=== PATIENT | female | born 1995 | race Caucasian/White ===

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

== ENCOUNTER → 2018-09-24 | Outpatient (CLI) | payer OTHER ==
--- NOTE | 2018-09-25 11:59 | XR ---
Cervical spine HISTORY: Right hand paresthesia, low back pain 5 views of the cervical spine No evident foraminal encroachment. Mild anterolisthesis grade 1 C4-5, C5-6 noted. There is relative s traightening of the cervical spine possibly due to underlying muscle spasm. Prevertebral soft tissues are normal. Cervical vertebral bodies show preserved height and bone mineralization. Disc spaces are maintained. Odontoid view somewhat limited. Questionable air-fluid level seen overlying the level of the larynx. IMPRESSION: Reversal of cervical lordosis may be due to underlying muscle spasm. Abnormal density see n on the lateral exam at the level of the larynx. Contrast-enhanced CT of the neck could be performed for additional evaluation.
--- NOTE | 2018-09-25 12:00 | XR ---
Lumbar spine HISTORY: Low back pain 5 views of the lumbar spine Lumbar vertebral bodies show preserved height, alignment, and bone mineralization. There is no eviden t spondylolysis or spondylolisthesis. Disc spaces are maintained. IMPRESSION: Normal lumbar spine.
== END | disposition home or self-care (01) ==
LOC: RADXRMAIN 17:15
PROVIDERS: ATTEND Family Medicine
DX: M54.5 Low back pain (principal); M40.40 Postural lordosis, site unspecified
CPT/HCPCS: 72050; 72110

== ENCOUNTER 2022-06-17 17:26 | Emergency (ER) | payer OTHER ==
[2022-06-17] MEDS ORDERED: PENICILLIN V POTASSIUM 250 MG TAB PO STA (18:51)
[2022-06-17] MEDS ORDERED: HYDROcodone/APAP 5-325MG 1 EACH TAB PO STA (18:51)
[2022-06-17 19:31] VITALS: BP 134/76; PULSE 81; RESP 16; TEMP 98.3
--- NOTE | 2022-06-17 19:37 | ED ---
General Adult HPI - General Chief complaint: Dental/Oral Stated complaint: Dental Pain Time Seen by Provider: 06/17/22 18:16 Source: patient, RN notes reviewed Mode of arrival: ambulatory Limitations: no limitations - History of Present Illness Initial comments: 26-year-old female presents to the emergency department for evaluation of dental pain. Patient states she has wisdom teeth that are infected and need to come out, but is unable to see an oral surgeon due to insurance issues. States she has taken Motrin at home with minimal improvement. Has been eating soft foods and attempting to avoid irritants. Denies fever, chills, headache, difficulty swallowing, or trismus. - Related Data Previous Rx's Medication Instructions Recorded HYDROcodone/APAP 5-325MG [[place] 1 tab PO Q6HR PRN 3 Days #12 tab 06/17/22 5-325] Penicillin V Potassium [Pen Vee K] 500 mg PO QID #40 tablet 06/17/22 Allergies Allergy/AdvReac Type Severity Reaction Status Date / Time No Known Allergies Allergy Verified 06/17/22 19:20 Review of Systems ROS Statement: Those systems with pertinent positive or pertinent negative responses have been documented in the HPI. ROS Other: All systems not noted in ROS Statement are negative. Past Medical History Additional Past Medical History / Comment(s): meningitis History of Any Multi-Drug Resistant Organisms: None Reported Additional Past Surgical History / Comment(s): kidney, uterine and cervical surgery Past Psychological History: No Psychological Hx Reported Smoking Status: Current every day smoker Past Alcohol Use History: None Reported Past Drug Use History: None Reported General Exam Limitations: no limitations General appearance: alert, other (Well-developed, well-nourished female in no acute distress though is moderately uncomfortable. Initial temperature 98.2, pulse 82, respirations 20, blood pressure 152/92, pulse ox 100% on room air.) Expanded Mouth exam: Absent: trismus Teeth exam: Present: dental caries, dental tenderness # (17) Neck exam: Present: normal inspection. Absent: tenderness, meningismus, lym phadenopathy Respiratory exam: Present: normal lung sounds bilaterally. Absent: respiratory distress, wheezes, rales, rhonchi, stridor Cardiovascular Exam: Present: regular rate, normal rhythm, normal heart sounds. Absent: systolic murmur, diastolic murmur, rubs, gallop, clicks Neurological exam: Present: alert, oriented X3, CN II-XII intact Course Vital Signs 06/17/22 06/17/22 18:04 19:29 Temperature 98.2 F 98.3 F Pulse Rate 82 81 Respiratory 20 16 Rate Blood Pressure 152/92 134/76 O2 Sat by Pulse 100 98 Oximetry Medical Decision Making - Medical Decision Making 26-year-old female presents to the emergency department for treatment of dental pain. Upon exam, patient is noted to have a broken wisdom tooth (#17) which is causing her significant discomfort. She is afebrile with stable vital signs. There is no evidence of abscess. She will be started on antibiotic and given pain medication. Provided with dental clinic resources and encouraged follow-up as soon as possible. Return parameters discussed in detail. Patient verbalizes understanding and agrees with this plan. Attending: Stefano. Disposition Clinical Impression: Dental caries, Pain, dental Disposition: HOME SELF-CARE Condition: Stable Instructions (If sedation given, give patient instructions): Toothache (ED) Additional Instructions: Take antibiotic as prescribed. Alternate Motrin with Veyo. You must follow-up with a dentist. You may need to see your PCP to help fac ilitate this process if it requires a formal referral process. Return to the emergency department with any new, worsening, or concerning symptoms. Please follow up with the [facility] dental clinic. [address] [place] [address] [place] [address]. Phone number for new patients or [phone] for existing patients. Prescriptions: HYDROcodone/APAP 5-325MG [Veyo 5-325] 1 tab PO Q6HR PRN 3 Days #12 tab PRN Reason: Pain Penicillin V Potassium [Pen Vee K] 500 mg PO QID #40 tablet Is patient prescribed a controlled substance at d/c from ED?: Yes When asked, does pt state using other controlled substances?: No If prescribed controlled substance>3 days was MAPS reviewed?: Prescribed <3 Days If opioid is for acute pain is fill amount 7 days or less?: Yes If Rx opioid, was Start Talking consent form obtained?: Yes Referrals: Yanci Olmedo MD [Primary Care Provider] - 1-2 days Time of Disposition: 19:37
[2022-06-17] MEDS ORDERED: ACET/COD 300 MG/30 MG STARTER PACK 6 TAB BTL PO STA (19:55)
== END 2022-06-17 20:06 | disposition home or self-care (01) ==
LOC: EC 17:26
DX: K02.9 Dental caries, unspecified (principal); F17.200 Nicotine dependence, unspecified, uncomplicated
CPT/HCPCS: 99282

== ENCOUNTER 2022-11-30 17:07 | Emergency (ER) | payer OTHER ==
[2022-11-30 17:29] VITALS: RESP 18; TEMP 98.5
[2022-11-30 17:48] LABS: Appearance,Urine Clear (Clear); Bilirubin,Urine Negative (Negative); Blood,Urine Large (Negative); Color,Urine Yellow; Glucose,Urine (UA) Negative (Negative); Ketones,Urine Negative (Negative); Leukocyte Esterase,Urine Moderate (Negative); Nitrite,Urine Negative (Negative); PH, Urine 7.5 (5.0-8.0); Protein,Urine Trace (Negative); RBC,Urine >182 /hpf (0-5); Specific Gravity,Urine 1.017 (1.001-1.035); Squamous Epithelial Cell,Urine 2 /hpf (0-4); Urobilinogen,Urine <2.0 mg/dL (<2.0); WBC,Urine 7 /hpf (0-5)
--- NOTE | 2022-11-30 20:21 | US ---
EXAMINATION TYPE: US transvaginal DATE OF EXAM: 11/30/2022 COMPARISON: 07/16/2011 CLINICAL HISTORY: pelvic pain. Pt states she started her menses today and is having severe pelvic briana n TECHNIQUE: Transvaginal (TV). Transvaginal sonographic images of the pelvis were acquired. Date of LMP: Today EXAM MEASUREMENTS: Uterus: 9.0 x 4.6 x 7.5 cm Endometrial Stripe: cm Right Ovary: 3.7 x 1.7 x 2.6 cm Left Ovary: 3.2 x 1.8 x 2.7 cm 1. 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 Endometrium: Right Horn= 0.8 cm Left Horn= 0.8 cm 3. Right Ovary: wnl 4. Left Ovary: wnl Spectral, color and waveform doppler imaging shows good arterial and venous flow within the ovaries ; there is no evidence for ovarian torsion. 5. Bilateral Adnexa: wnl 6. Posterior cul-de-sac: Small amount of free fluid IMPRESSION: Bicornuate uterus. Normal endometrium. No adnexal mass. No evidence of ovarian torsion. Small amount of free fluid is likely physiologic in the pelvis. No adverse change.
[2022-11-30] MEDS ORDERED: IBUPROFEN 600 MG TAB PO STA (20:51)
[2022-11-30] MEDS ORDERED: HYDROcodone/APAP 5-325MG 1 EACH TAB PO STA (20:51)
--- NOTE | 2022-11-30 20:53 | ED ---
Abdominal Pain HPI - General Chief Complaint: Abdominal Pain Stated Complaint: abd pain Time Seen by Provider: 11/30/22 19:08 Source: patient Mode of arrival: ambulatory Limitations: no limitations - History of Present Illness Initial Comments: This 27-year-old woman who presents evaluation of pelvic pain. She states she has been having episodes like this going back a number of months and that her primary physician was concerned she may be having endometriosis. She in fact was given prescription to have ultrasound but had not been able to schedule yet. The patient states that she started having identical symptoms early today. She states this episode may be a little worse than his usual. Patient has not noted any associated fever or chills. No change in urination or bowel movements. She is currently having menstrual bleeding but has not noted any vaginal discharge. MD Complaint: abdominal pain -: hour(s) Location: LLQ, RLQ, suprapubic Radiation: none Migration to: no migration Severity: severe Quality: cramping, aching Consistency: constant Improves With: nothing Worsens With: nothing Associated Symptoms: denies other symptoms - Related Data LMP (females 10-50): this week Previous Rx's Medication Instructions Recorded HYDROcodone/APAP 5-325MG [[place] 1 tab PO Q6HR PRN 3 Days #12 tab 06/17/22 5-325] Penicillin V Potassium [Pen Vee K] 500 mg PO QID #40 tablet 06/17/22 Naproxen Sodium 275 mg PO BID #20 tablet 11/30/22 Allergies Allergy/AdvReac Type Severity Reaction Status Date / Time No Known Allergies Allergy Verified 11/30/22 17:29 Review of Systems ROS Statement: Those systems with pertinent positive or pertinent negative responses have been documented in the HPI. ROS Other: All systems not noted in ROS Statement are negative. Constitutional: Denies: fever, chills Respiratory: Denies: cough, dyspnea Cardiovascular: Denies: chest pain, palpitations, edema Gastrointestinal: Reports: as per HPI, abdominal pain. Denies: nausea, vomiting, diarrhea, constipation, melena, hematochezia Genitourinary: Denies: dysuria, frequency, discharge, abnormal menses Musculoskeletal: Denies: back pain Skin: Denies: rash Neurological: Denies: headache, weakness, numbness Past Medical History Additional Past Medical History / Comment(s): meningitis History of Any Multi-Drug Resistant Organisms: None Reported Additional Past Surgical History / Comment(s): kidney, uterine and cervical surgery Past Psychological History: No Psychological Hx Reported Smoking Status: Current every day smoker Past Alcohol Use History: None Reported Past Drug Use History: None Reported General Exam Limitations: no limitations General appearance: alert, in no apparent distress Head exam: Present: atraumatic, normocephalic Eye exam: Present: normal appearance. Absent: scleral icterus, conjunctival injection Neck exam: Present: normal inspection Respiratory exam: Present: normal lung sounds bilaterally. Absent: respiratory distress, wheezes, rales, rhonchi, stridor Cardiovascular Exam: Present: regular rate, normal rhythm, normal heart sounds. Absent: systolic murmur, diastolic murmur, rubs, gallop GI/Abdominal exam: Present: soft. Absent: distended, tenderness, guarding, rebound, rigid, mass, pulsatile mass External exam: Present: other (Exam performed by the physician study assistant as patient requested a female examiner) Extremities exam: Present: normal inspection, normal capillary refill. Absent: pedal edema, calf tenderness Back exam: Present: normal inspection. Absent: CVA tenderness (R), CVA tenderness (L) Neurological exam: Present: alert Skin exam: Present: warm, dry, intact, normal color. Absent: rash Course Vital Signs 11/30/22 11/30/22 17:26 21:10 Temperature 98.5 F Pulse Rate 66 62 Respiratory 18 18 Rate Blood Pressure 130/60 99/69 O2 Sat by Pulse 100 99 Oximetry Medical Decision Making - Medical Decision Making Patient is 27-year-old woman who has been having a few months of low abdominal/pelvic pain in conjunction with her menstrual cycle. The workup here unremarkable, other than mild AST ALT which was discussed with the patient and she will follow up for repeat testing. There are some cells in the urine but this appears consistent with menstrual contamination and the patient not having dysuria frequency or urgency. Swabs were obtained by the physician study assistant's study assistant and sent to lab and these are pending. Ultrasound was interpreted by radiology as being unremarkable. The patient will follow with gynecology for further evaluation and treatment. We discussed appropriate further care and follow-up as well as return parameters. Was pt. sent in by a medical professional or institution (, PA, PAINT DIPPER, urgent care, hospital, or fdc...) When possible be specific @ -[No] Did you speak to anyone other than the patient for history (EMS, parent, family, police, friend...)? What history was obtained from this source @ -[No] Did you review nursing and triage notes (agree or disagree)? Why? @ -[I reviewed and agree with nursing and triage notes] Were old charts reviewed (outside hosp., previous admission, EMS record, old EKG, old radiological studies, urgent care reports/EKG's, fdc records)? Report findings @ -[No old charts were reviewed] Differential Diagnosis (chest pain, altered mental status, abdominal pain women, abdominal pain men, vaginal bleeding, weakness, fever, dyspnea, syncope, headache, dizziness, GI bleed, back pain, seizure, CVA, palpatations, mental health, musculoskeletal)? @ -[Differential Abdominal Pain Women: Appendicitis, Cholecystitis, diverticulosis, ischemic bowel, pancreatitis, hepatitis, UTI, gastroenteritis, AAA, incarcerated hernia, bowel obstruction, constipation, inflammatory bowel, hepatitis, peptic ulcer disease, splenic infarction, perforated viscus, vulvitis, ovarian torsion, PID, kidney stone, placenta abruption, this is not meant to be an all-inclusive list EKG interpreted by me (3pts min.). @ -[As above] X-rays interpreted by me (1pt min.). @ -[ CT interpreted by me (1pt min.). @ -[None done] U/S interpreted by me (1pt. min.). @ -[None done] What testing was considered but not performed or refused? (CT, X-rays, U/S, labs)? Why? @ -[None] What meds were considered but not given or refused? Why? @ -[None] Did you discuss the management of the patient with other professionals (professionals i.e. , PA, PAINT DIPPER, lab, RT, psych nurse, social director, rn testing, teacher, drug abuse resistance education officer, case technician)? Give summary @ -[No] Was smoking cessation discussed for >3mins.? @ -[No] Was critical care preformed (if so, how long)? @ -[No] Were there social determinants of health that impacted care today? How? (Homelessness, low income, unemployed, alcoholism, drug addiction, transportation, low edu. Level, literacy, decrease access to med. care, detention, rehab)? @ -[No] Was there de-escalation of care discussed even if they declined (Discuss DNR or withdrawal of care, Hospice)? DNR status @ -[No] What co-morbidities impacted this encounter? (DM, HTN, Smoking, COPD, CAD, Canc er, CVA, ARF, Chemo, Hep., AIDS, mental health diagnosis, sleep apnea, morbid obesity)? @ -[None] Was patient admitted / discharged? Hospital course, mention meds given and route, prescriptions, significant lab abnormalities, going to OR and other pertinent info. @ -[Discharged, as above Undiagnosed new problem with uncertain prognosis? @ -[No] Drug Therapy requiring intensive monitoring for toxicity (Heparin, Nitro, Insulin, Cardizem)? @ -[No] Were any procedures done? @ -[No] Diagnosis/symptom? @ -[Acute, recurring, pelvic pain Acute, or Chronic, or Acute on Chronic? @ -[default] Uncomplicated (without systemic symptoms) or Complicated (systemic symptoms)? @ -[Uncomplicated Side effects of treatment? @ -[No] Exacerbation, Progression, or Severe Exacerbation? @ -[No] Poses a threat to life or bodily function? How? (Chest pain, [place], [place], pneumonia, PE, COPD, DKA, ARF, appy, cholecystitis, CVA, Diverticulitis, Homicidal, Suicidal, threat to staff... and all critical care pts) @ -[No] - Lab Data Lab Results 11/30/22 11/30/22 Range/Units 17:32 17:32 Urine Color Yellow Urine Appearance Clear (Clear) Urine pH 7.5 (5.0-8.0) Ur Specific [place] 1.017 (1.001-1.035) Urine Protein Trace H (Negative) Urine Glucose (UA) Negative (Negative) Urine Ketones Negative (Negative) Urine Blood Large H (Negative) Urine Nitrite Negative (Negative) Urine Bilirubin Negative (Negative) Urine Urobilinogen <2.0 (<2.0) mg/dL Ur Leukocyte Esterase Moderate H (Negative) Urine RBC >182 H (0-5) /hpf Urine WBC 7 H (0-5) /hpf Ur Squamous Epith Cells 2 (0-4) /hpf Urine HCG, Qual Not Detected (Not Detectd) Disposition Clinical Impression: Pelvic pain Disposition: HOME SELF-CARE Condition: Good Instructions (If sedation given, give patient instructions): Pelvic Pain (ED) Prescriptions: Naproxen Sodium 275 mg PO BID #20 tablet Is patient prescribed a controlled substance at d/c from ED?: No Referrals: Yanci Olmedo MD [Primary Care Provider] - 1-2 days
[2022-11-30] MEDS ORDERED: ACET/COD 300 MG/30 MG STARTER PACK 6 TAB BTL PO STA (21:05)
[2022-11-30 21:11] VITALS: BP 99/69; PULSE 62
[2022-12-04 14:36] LABS: C. trachomatis,PCR Negative (Neg,Equiv); Chlamydia trachomatis Source Cervix; N. gonorrhoeae,PCR Negative (Neg,Equiv); Neisseria Source Cervix
== END 2022-11-30 21:13 | disposition home or self-care (01) ==
LOC: EC 17:07
DX: R10.2 Pelvic and perineal pain (principal); F17.200 Nicotine dependence, unspecified, uncomplicated
CPT/HCPCS: 76830; 81001; 81025; 87491; 87591; 93975; 99284